=== PATIENT | female | born 1945 | race Caucasian/White ===

== ENCOUNTER → 2019-03-17 | Outpatient (CLI) | payer OTHER | LOC: EMCIMAGING 12:53 | PROVIDERS: ATTEND Physician Assistant Medical | DX: M25.552 Pain in left hip (principal); M24.852 Other specific joint derangements of left hip, not elsewhere classified; M51.36 Other intervertebral disc degeneration, lumbar region; Q65.89 Other specified congenital deformities of hip | CPT/HCPCS: 73521-PN ==